=== PATIENT | male | born 1990 | race Caucasian/White ===

== ENCOUNTER 2024-04-05 06:02 | Day surgery (SDC) | payer BC, SELFPAY ==
[2024-04-05] VITALS (12 sets, daily range): BP systolic 90–133; BP diastolic 45–95; PULSE 47–64; RESP 12–18; TEMP 36.1–36.6; O2SAT 95–100; BMI 36.9
[2024-04-05] MEDS: SODIUM CHLORIDE 0.9 % (FLUSH) 10 ML SYRINGE IVF (06:54)
[2024-04-05] MEDS: LACTATED RINGERS 1000 ML 1,000 ML 100 ML IV (06:54)
--- NOTE | 2024-04-05 07:57 | W.ANESCHARGE ---
Anesthesia Charges Start Date/Time Anesthesia Start Date: 04/05/24 Anesthesia Start Time: 07:31 Stop Date/Time Anesthesia Stop Date: 04/05/24 Anesthesia Stop Time: 08:20
[2024-04-05] MEDS: BUPIVACAINE 0.25% 30 ML 10 ML INJECTION (08:05)
[2024-04-05] MEDS: BUPIVACAINE LIPOSOME 133 MG/10 ML INJ INFILTRATI (08:05)
--- NOTE | 2024-04-05 08:15 | PM.GSPRC ---
Operative Note Date of procedure: 04/05/24 Pre-op diagnosis: Internal hemorrhoids, grade 3 Post-op diagnosis: Same Type of Procedure: 1 quadrant hemorrhoidectomy, exam under anesthesia Indications: Patient is a 33-year-old male who presented to clinic with symptomatic hemorrhoids, please see consultation note for full discussion regarding different treatment options. Risks and benefits of operative intervention were discussed at length with the patient. Risks included but was not limited to: Bleeding, infection, risk of damage to surrounding structures including possible damage to underlying muscle and changes in continence of gas or stool, possible need for additional procedures, risk of swelling and skin tags postprocedure and postoperative complications such as pneumonia, pulmonary emboli or PA. All questions and concerns were addressed with the patient agreeing to proceed. Procedure Description: The patient was brought to the Operating Room and a formal timeout for patient safety was performed in accordance with hospital protocol, thereby correctly matching this patient with their diagnosis and intended procedure. A spinal anesthetic was administered by anesthesia. The patient was then transferred to the Operating Room table, placed in the prone jackknife position with appropriate bumps and padding. Care was taken to ensure the genitalia and breasts were properly positioned on the hip and chest rolls, respectively. The shoulders and arms were positioned with care to protect the brachial plexus. The buttocks were taped laterally. A sterile prep and drape was done in the usual fashion. External examination, digital rectal examination, and anoscopic examination were all done and revealed significantly redundant internal hemorrhoidal tissue in the left lateral aspect of the anal canal with associated residual hemorrhoidal skin tags. Based on this assessment, plans were made for a 1-quadrant closed hemorrhoidectomy to encompass the aforementioned aspects of the anal canal. An elliptical incision was made with a needle tip electrocautery from the anoderm up into the anal canal just above the dentate line. Careful dissection of the hemorrhoid complex was done in the plane between the internal anal sphincter and the submucosal vascular plexus up to just above the dentate line in each quadrant described above. Having established the proper plane, the hemorrhoidal tissue was then excised with the Ligasure device and sent to Pathology for analysis. Care was taken to preserve mucosa for a tension-free closure. The internal sphincter fibers were visualized at the base of the wound and were intact. The wound was closed in a running locked manner starting at the apex (proximal aspect of elliptical excision) with 4-0 chromic suture, coming out to the anoderm and then running back up in a simple fashion and tying down at the apex. A small burn from the LigaSure was identified on the rectal mucosa right lateral. This was not full-thickness and hemostatic. A single stitch of 4-0 chromic was placed. A mixture of Exparel and Marcaine was used to anesthetize the operative field and place a pudendal block bilaterally. Hemostasis was excellent at the end of the procedure. The patient tolerated procedure well. There were no apparent complications. Instrument, sponge, and needle counts were correct at the end of the case. Findings: Redundant internal hemorrhoidal tissue with associated skin tag, left lateral. Anesthesia: local and spinal Surgeon: Mayte Carbajal MD Estimated blood loss (mL): 5 Additional Specimen Information: Left lateral hemorrhoid tissue Condition: stable Disposition: PACU
--- NOTE | 2024-04-05 09:01 | W.ANESCHARGE ---
Anesthesia Charges Start Date/Time Anesthesia Start Date: 04/05/24 Anesthesia Start Time: 07:31 Stop Date/Time Anesthesia Stop Date: 04/05/24 Anesthesia Stop Time: 08:20
[2024-04-05] MEDS: HYDROCODONE-ACETAMIN 5-325 MG 1 TAB PO (09:53)
== END 2024-04-05 09:57 | disposition home or self-care (01) ==
PROVIDERS: PCP Family Medicine; Visit Provider Surgery
PROC: (CPT 46255; principal; 2024-04-05 07:30)
DX: K64.2 Third degree hemorrhoids (principal); K64.8 Other hemorrhoids
CPT/HCPCS: 46255; 00902; 88304; A9270; C9290; J0665; J2250; J2405; J2704; J7120

== ENCOUNTER 2024-08-13 07:17 | Outpatient (CLI) | payer BC, SELFPAY ==
--- NOTE | 2024-08-13 07:15 | CRLHL7_ITS ---
For Patients: As a result of the Century Cures Act, medical imaging exams and procedure reports are released immediately into your electronic medical record. You may view this report before your referring provider. If you have questions, please contact your health care provider. Indication: Lower abdominal soft tissue mass Technique: Grayscale and color Doppler ultrasound of the lower abdominal wall soft tissues performed in the area of concern Comparison: None Findings: There is a fluid collection within the subcutaneous tissues which measures 2.9 x 0.6 x 0.9 cm. No internal vascularity or solid component. No shadowing mass. No suspicious findings. Impression: Fluid collection within the subcutaneous tissues measuring 2.9 x 0.6 x 0.9 cm, postop seroma versus hematoma. No suspicious findings. Dictated by Tani Ahn MD @ 08/13/2024 8:08:28 AM (Electronically Signed)
== END 2024-08-13 07:18 | disposition home or self-care (01) ==
LOC: US 07:19
PROVIDERS: PCP Family Medicine; Visit Provider Surgery
DX: R19.03 Right lower quadrant abdominal swelling, mass and lump (principal)
CPT/HCPCS: 76705